=== PATIENT | female | born 1955 | race Caucasian/White ===

== ENCOUNTER 2016-07-21 19:11 | Inpatient (IN) | payer MEDICAID ==
[~2016-07-21] VITALS: Ht 177.8 cm; Wt 84.1 kg
--- NOTE | ~2016-07-21 | CON ---
PATIENT'S NAME: VERONIKA BURT [facility] AGE: 60 Y [address] ROOM: [id number] [place], [place] [address] LOCATION: GICU ADMIT DATE: 07/21/2016 Consultation DISCHARGE DATE: 07/25/2016 FAMILY PHYSICIAN: Ramon Dempsey ATTENDING PHYSICIAN: Lucien Loving REFERRING PHYSICIAN: Wellington Quezada MD Consultation to Dr. Coon. HISTORY OF PRESENT ILLNESS: Veronika Burt is a 60-year-old woman with presumed seizures due to presumed brain metastases due to documented small-cell carcinoma of the lung. The history of the present illness is obtained from Mrs. Burt who is a good historian; from reviewing the records on the [facility] chart; and the records obtained from the Cancer Center that attends her in [place], [place]. The patient was doing reasonably well when she came to [place]. She had arrived after a long motor vehicle trip from [place], [place]. In [place], she lived with her son, sister and nephew. The patient had retired two years ago. She came to [place] to visit family here, show her [place] family where she grew up, and planned a sojourn to the [facility]. The patient helped drive to [place]. She is certainly capable of self-care. She did cooking and vacuuming at home. She had no exercise or rehabilitation program. Physical therapy has been planned for her left arm. She is limited by left arm pain and weakness. She was limited by dyspnea if she tried to walk more than 3 to 4 blocks. The patient checked into a motel when the family arrived in [place]. The patient recalls she was unable to lift her leg. She then blacked out. Her son felt the patient had tonic-clonic motions. The patient was postictal and had cyanosis. The rescue squad was dispatched and the patient was taken to the emergency room at [facility] where she was confused and felt to be postictal. The patient's mental state cleared in the emergency room. The emergency room evaluation [place] [address], the hemoglobin 9.5, and platelets 541,000. The sedimentation rate was 28. The INR was 1.14 and the PTT was 27. The D-dimer was elevated at 1.81. The CMS was unremarkable except for a potassium of 3.4 mEq/L and an elevated creatinine of 1.5 mg/dL with a low GFR of 36 and a low magnesium of 1.7 mEq/L. There was no blood alcohol and drug levels were negative. The lactate was 1.6 and the serum ammonia was normal at 24. The ABG revealed a pH of 7.46, a PO2 of 71, a pCO2 of 42. Urinalysis revealed 5-10 wbc's/HPV and many bacteria. Blood cultures were drawn. PATIENT'S NAME: VERONIKA BURT [facility] AGE: 60 Y [address] ROOM: [address] [address] LOCATION: [facility] ADMIT DATE: 07/21/2016 Consultation DISCHARGE DATE: 07/25/2016 FAMILY PHYSICIAN: Ramon Dempsey ATTENDING PHYSICIAN: Lucien Loving A portable chest x-ray revealed elevation of left hemidiaphragm and surgical clips at the left hilum. There was pleural-parenchymal opacity at the left chest base. A ventilation perfusion scan of the lung revealed homogeneous perfusion of both lungs and normal ventilation of both lungs. There was a low probability of a pulmonary emboli. A CAT scan of the brain revealed mild atrophy and fake areas of mildly increased density in the right head of the caudate, nucleus, and the left anterior corpus callosum, in front of the frontal horn, in the right posterior corpus callosum, and adjacent to the left occipital horn. Significance of these abnormalities was not clear. MRI with contrast was strongly advised for further assessment. No hemorrhages or extra- axial fluid or blood collections were noted. An MRI was recommended and obtained. On 07/22/2016, the MRI revealed mild cerebral atrophy with innumerable nodular and ring-enhancing lesions above and below the tentorium consistent with widely disseminated metastatic disease. There was no intracranial hemorrhage or extra-axial fluid or blood. Mrs. Burt is seen in evaluation. Mrs. Burt has a history of small cell carcinoma of the lung. In September of 2015, the patient palpated a mass in her left neck and subsequently developed radicular discomfort in her left arm. A CAT scan of the thorax revealed left cervical, supraclavicular, mediastinal, and hilar adenopathy. A biopsy of a node in the left neck revealed small cell carcinoma. On 12/07/2015, the first cycle of TERRAZZO GRINDER-16 and carboplatin was initiated and six cycles were given, the last on 03/28/2016. Mrs. Burt tolerated this reasonably well. On 03/31, on day four of her six cycle, the patient did develop melena due to a supratherapeutic INR. From 05/15 through 05/26/16, the patient received 30 Gy in ten 3 Gy fractions to the mediastinum, left cervical, and left supraclavicular nodes. The patient was very fatigued. The pros and cons of prophylactic radiation therapy were considered, according to the patient, but her radiation oncologist in [place] recommended against PCI. ACTIVE MEDICAL PROBLEMS, CHRONIC AND DIAGNOSED: 1. ASHD leading to an RI requiring placement of a drug-eluting stent in July 2015. 2. COLD and reactive airways disease. The patient uses 2 L of oxygen at night all the time. 3. Essential arterial hypertension noted in 2001 on a checkup. This has not been labile or associated with any end-organ damage. 4. Hyperlipidemia, noted 2013. 5. Paroxysmal atrial fibrillation, first noted in 2001. 6. Systolic congestive heart failure, listed as a diagnosis. PATIENT'S NAME: VERONIKA BURT [facility] AGE: 60 Y [address] ROOM: [place] [address] LOCATION: [facility] ADMIT DATE: 07/21/2016 Consultation DISCHARGE DATE: 07/25/2016 FAMILY PHYSICIAN: Ramon Dempsey ATTENDING PHYSICIAN: Lucien Loving 7. Gastroesophageal reflux disease. 8. Tobacco use. The patient smoked two pack per day for 35 years, but has abstained since August 2014. 9. Right bundle branch block. 10. Hypothyroidism. The patient's TSH is elevated at 7.15 mIU/mL. 11. ?CKD. 12. Noy-hxciogc-ralivpdsv diabetes mellitus, listed as a diagnosis. She denies this. 13. Anxiety, treated with alprazolam. 14. Mild concentric LVH and a small pericardial effusion noted on echo. 15. Mild cerebral atrophy noted on MRI. ACUTE MEDICAL ILLNESSES (RESOLVED), PAST SURGERIES, INJURIES: 1. 1967, left elbow fracture. 2. 1971, left wrist fracture. 3. 1974, fracture of the ankles. 4. 1993, G1, P1, AB 0. 5. 2007, FRANCISCO and BSO primarily for dysmenorrhea from the fibroid tumor. 6. 2017, hospitalization with melena due to a supratherapeutic INR. MEDICATIONS UPON ADMISSION: 1. KCl. 2. Lisinopril. 3. Aspirin. 4. Clindamycin. 5. Hydrocodone. 6. Pantoprazole. 7. MS Contin. 8. Alprazolam. 9. Ondansetron. 10. Furosemide. 11. Metoprolol. 12. Atorvastatin. 13. Clopidogrel. ADVERSE REACTIONS TO MEDICATIONS, TRANSFUSIONS, ALLERGIES: 1. Lorazepam causes her to be "vicious.". 2. The patient had packed red blood cells due to chemotherapy-related anemia. TOBACCO: Two packs per day for 35 years, abstained since 2014. ALCOHOL: Sparkling wine on New Years. PATIENT'S NAME: VERONIKA BURT [facility] AGE: 60 Y [address] ROOM: [place] [address] LOCATION: [facility] ADMIT DATE: 07/21/2016 Consultation DISCHARGE DATE: 07/25/2016 FAMILY PHYSICIAN: Ramon Dempsey ATTENDING PHYSICIAN: Lucien Loving CAFFEINE: None. IMMUNIZATIONS: Negative flu. Positive Pneumovax. Negative tetanus. Negative varicella zoster virus. FAMILY HISTORY: The patient was adopted. SOCIAL HISTORY: The patient was born in [place], [place] but was raised and graduated a [place] [employer]. She worked years. She never . She moved to [place] 23 years ago. 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 She has not been a jewish goer. REVIEW OF SYSTEMS: 1. Long-standing tinnitus. 2. Constipation. 3. Nocturia. 4. Numbness in the right first and second finger. PHYSICAL EXAMINATION: VITAL SIGNS: Upon admission, pulse 96, blood pressure 110/60, respiratory rate 18, temperature 98.3, height 60 inches, weight 82.4 kg (182 pounds). GENERAL: Well-developed, slightly overweight, 60-year-old female, in no acute distress. HEENT: Unremarkable. Lymph nodes not palpable. NECK: Without JVD or carotid bruit. SKIN: Unremarkable. CHEST: Clear. CARDIOVASCULAR: Irregularly irregular rhythm with no murmurs, bruits, or adventitious sounds. CHEST WALL: Implanted vascular access device in the right subclavicular region. ABDOMEN: Healed vertical scar from the umbilicus to the symphysis pubis. No masses, tenderness or megaly. GENITALIA AND RECTAL: Not examined. EXTREMITIES: Compression devices present on the lower extremities for DVT prophylaxis. NEURO: Left arm strength 4/5, 5/5 throughout, otherwise. IMPRESSION: 1. Disseminated small-cell carcinoma of the lung, metastatic to the brain. 2. The patient probably developed convulsions due to the unrecognized brain PATIENT'S NAME: VERONIKA BURT [facility] AGE: 60 Y [address] ROOM: [place] [address] LOCATION: [facility] ADMIT DATE: 07/21/2016 Consultation DISCHARGE DATE: 07/25/2016 FAMILY PHYSICIAN: Physician, New ATTENDING PHYSICIAN: Lucien Loving. 3. The patient desires to return to [place], [place] to proceed with the cranial radiation that is needed closer to home. We should support her with this. RECOMMEND DIAGNOSTIC: No further tests, treatment. Cranial radiation per our colleagues in [place], [place]. PATIENT EDUCATION: 1. Told her we thought with dexamethasone and anticonvulsants she is unlikely to develop recurrent seizures if she hurries back to [place]. 2. Recommended she keep her appointments, which she intends to do, in a day or two in [place] for cranial radiation. MD CELESTE JOYA/modl /[id number] CC: MD Royce Jewell MD Fishel Z Liberman, MD, PhD d: 07/29/16 2339 t: 08/01/16 1446, CONSULTATION REPORT
--- NOTE | ~2016-07-21 | HP ---
PATIENT'S NAME: MIKEY BURT [facility] AGE: 60 Y [address] ROOM: [address] [address] LOCATION: [facility] ADMIT DATE: 07/21/2016 History & Physical DISCHARGE DATE: FAMILY PHYSICIAN: PHYSICIAN, UNKNOWN ATTENDING PHYSICIAN: MARLY STAHL DATE OF SERVICE: CHIEF COMPLAINT: Seizure. HISTORY OF PRESENT ILLNESS: This is a 60-year-old female who usually lives in [place] and is visiting [place]. The patient has a history remarkable for left lower lung cancer, diagnosed in October 2015, already received chemotherapy and radiation, and she already finished those treatments and was told was in remission without evidence of metastases. The story is that the patient came here from [place] with her son and her sister and when they arrived at the hotel, the patient's son and sister went down to the office. The patient was alone in the room and all of the sudden, the patient felt cramp in her left lower extremity, and then she was complaining of shortness of breath and then she fell backwards lying on the bed and was having tremor where she described as shaking of of all extremities. The son walked into the room while she was having a seizure and the son called 911 and the ambulance crew arrived. When they arrived on the scene, the patient initially was confused where she was saying the word ''dora'' to every question asked by the EMS. She then would regain her normal mental status, the duration of the seizure was unknown. The patient has never been diagnosed with seizure before. The patient was then brought here for evaluation. Please refer to the emergency room course for more details of the events happened in the emergency room. REVIEW OF SYSTEMS: As mentioned in history of present illness. All other systems were reviewed and they were negative except those mentioned in the history of present illness. PAST MEDICAL HISTORY: 1. History of left lower lung cancer, diagnosed in October 2015, status post chemotherapy and radiation, she already finished both treatment and she was never told she had metastasis. 2. Myocardial infarction, status post one drug-eluting stent placed in early July 2015 in [place]. 3. COPD on 2 L nasal cannula at all times, but the patient is noncompliant [facility] AGE: 60 Y [address] [place] [facility] [place] [address] LOCATION: [facility] ADMIT DATE: 07/21/2016 History & Physical DISCHARGE DATE: FAMILY PHYSICIAN: PHYSICIAN, UNKNOWN ATTENDING PHYSICIAN: MARLY STAHL and has not been using home oxygen. 4. Hypertension. 5. History of CHF, not sure which type, because we do not have any echo report. 6. Hyperlipidemia. 7. Gastroesophageal reflux disease. 8. Paroxysmal atrial fibrillation, she was on Coumadin before, but she developed massive bright red blood per rectum requiring 3 units of packed red blood cell transfusion in April 2016 in [place]. She underwent EGD and colonoscopy at that time without clear source of bleeding. She has been off Coumadin since then. ALLERGIES: NONE; ALTHOUGH, THE PATIENT STATES THAT WHEN SHE TAKES ATIVAN, SHE BECOMES AGGRESSIVE, AND I SPOKE TO THE PATIENT THAT IN CASE SHE IS IN ACTIVE SEIZURE, ATIVAN IS VERY IMPORTANT TO STOP THE SEIZURE, AND THE PATIENT AGREED ATIVAN USE FOR ACTIVE SEIZURE. HOME MEDICATIONS: 1. Potassium chloride 10 mEq p.o. daily. 2. Lisinopril 2.5 mg p.o. daily. 3. Aspirin 81 mg p.o. daily. 4. Clindamycin 150 mg p.o. take 4 times a day. 5. Hydrocodone 10/325 mg p.o. every 6 hours p.r.n. for pain. 6. Protonix 40 mg p.o. daily. 7. MS Contin 30 mg p.o. b.i.d. 8. Xanax 0.25 mg p.o. b.i.d. p.r.n. for anxiety. 9. Zofran 4 mg p.o. p.r.n. q.6 h. for nausea. 10. Lasix 20 mg p.o. daily p.r.n. for leg edema. 11. Metoprolol 25 mg p.o. take half-tablet twice a day. 12. Lipitor 40 mg p.o. daily. 13. Plavix 75 mg p.o. daily. SOCIAL HISTORY: The patient was a former cigarette smoker about 2 packs per day for 35 years and she quit in 2014. Denies any alcohol or any illegal drug use. FAMILY HISTORY: The patient does not remember anything about her parents' past medical history. PAST SURGICAL HISTORY: 1. Status post hysterectomy. 2. Status post LA with 1 drug-eluting stent placed in July 2015 in [place]. PATIENT'S NAME: MIKEY BURT [facility] AGE: 60 Y [address] ROOM: [id number] [place], [place] [address] LOCATION: [facility] ADMIT DATE: 07/21/2016 History & Physical DISCHARGE DATE: FAMILY PHYSICIAN: PHYSICIAN, UNKNOWN ATTENDING PHYSICIAN: MARLY STAHL PHYSICAL EXAMINATION: VITAL SIGNS: Temperature 98, heart rate 105, blood pressure 110/80, respirations 15, and saturation 98% on 4 L nasal cannula. GENERAL APPEARANCE: The patient is alert and oriented x3, in no acute distress. HEENT: Pupils are equally round and reactive to light. Extraocular muscles intact. Anicteric sclerae. Nasal turbinates are normal bilaterally. Moist oral mucosa. NECK: No JVD. CARDIOVASCULAR: Irregularly irregular rate and rhythm. No obvious murmur, rubs, or gallops. RESPIRATORY: Diffuse wheezing with decreased breath sounds in the left lower lung. No crackles, no rhonchi, no rales. ABDOMEN: Soft, nontender, nondistended, no palpable mass, bowel sounds are present. EXTREMITIES: No edema in upper or lower extremities. SKIN: No ulcer, no rash, no cyanosis. MUSCULOSKELETAL: No joint pain. No muscle pain. Range of motion intact. NEUROLOGICAL: Grossly nonfocal at the moment. LABORATORY DATA: ABG pH 7.46, pCO2 42, pO2 71, bicarbonate 29.9, and saturation 95%, this is on 4 L nasal cannula. Lactic acid 1.6, ammonia 24. Troponin less than 0.04. Pro-BNP 959, CPK 48. White blood cells 11.2, hemoglobin 9.5, hematocrit 31.9, MCV 88.9, platelets 541, glucose 128, BUN 19, creatinine 1.5. Sodium 139, potassium 3.4, chloride 101, CO2 28, calcium 8.9, total protein 6.9, albumin 3.3, AST 25, ALT 10, alkaline phosphatase 48, total bilirubin 0.8, magnesium 1.7, anion gap 13.4, GFR 36, ESR 28. INR 1.14, PTT 27. Urinalysis 500 of leukocytes, negative nitrite, many bacteria, white blood cells 5-10. Urine drug screen positive for opiates. Alcohol level, Tylenol level, and aspirin level all below the toxic level. CK-MB less than 0.5. CRP 1.05. TSH 7.15. Prolactin 25.6. Procalcitonin 0.05. D-dimer 1.81. IMAGING STUDIES: 1. Chest x-ray performed in the emergency room. The official report is pending. Based on my review, enlarged heart and opacity in the left lower lung. I have requested the x-ray to be read by the on-call radiologist. Currently, it is pending. 2. CT scan of the brain without contrast, the preliminary report performed in the emergency room, showed multiple indeterminate central hyperdense lesions. Recommend brain MRI with and without gadolinium. No midline shift, no hydrocephalus, and no hemorrhage. No skull fracture. Vague area of hyperdensity in the right caudate head is approximately 1.2 cm with central area of hypodensity. Similar prominence of the right caudate head measures 10 mm on image 21. Left corpus callosum splenium 6 PATIENT'S NAME: MIKEY BURT [facility] AGE: 60 Y [address] ROOM: [address] [address] LOCATION: [facility] ADMIT DATE: 07/21/2016 History & Physical DISCHARGE DATE: FAMILY PHYSICIAN: PHYSICIAN, UNKNOWN ATTENDING PHYSICIAN: MARLY STAHL mm vague hyperdensity on image 24. Left posterior corpus callosum 7 mm hyperdensity image 27. 3. EKG on admission showed finding of atrial fibrillation with heart rate of 141, QRS 139 milliseconds, QTc 409 milliseconds. Also, has evidence of right bundle-branch block. No prior EKG for comparison. EMERGENCY ROOM COURSE: In the emergency room, the patient has been doing well without any more seizures. She has remained alert and oriented x3 in no acute distress. The patient currently does not complain of any symptoms. ER physician already contacted on-call neurosurgeon, Dr. Coon, who will be seeing the patient in the morning. In the emergency room, the patient received 2 L of normal saline bolus given that her blood pressure was in the high 80's to low 90s and heart rate in the 120s to 140's. ASSESSMENT AND PLAN: 1. Regarding her new-onset seizures in the setting of possible brain mass: Please follow up with the official report of the CT of the brain without contrast in the morning once the report is official. For now, I will cover with 1 g intravenous Keppra and then 500 mg b.i.d. afterwards. Intravenous Ativan 2 mg every 5 minutes p.r.n. for active seizure. Seizure precaution. Preliminary report did not show any midline shift, hydrocephalus, or hemorrhage. I have spoken to the on-call neurosurgeon Dr. Coon and confirmed iv decadron is not necessary at the moment. Further plan depends on clinical course. I will also consult Neurology in the morning to help assist in managing seizure. 2. [id number]-wb-igvpxud hypoxemic respiratory failure secondary to copd exacerbation: I will cover her with intravenous Solu-Medrol 125 mg now and then 60 mg b.i.d. and also give her nebulization every 6 hours with Xopenex plus Atrovent and also Atrovent every 2 hours p.r.n. I will also cover with intravenous Levaquin given that she does have pyuria and also part of the chronic obstructive pulmonary disease exacerbation also includes antibiotic administration. Further plan depends on clinical course. Please follow up with the official report of the chest x-ray in the morning. 3. Regarding her acute kidney injury on chronic kidney disease: Hard to tell this is new or at baseline because we do not have any labs to compare. The patient told me that she was never told she had any kidney problem and probably this is acute kidney injury. I will hydrate her with intravenous fluids. She already got 2 L in the emergency room. I will give her more intravenous fluids for hydration and watch her oxygen saturation closely. The patient does not look volume overloaded. 4. Regarding her atrial fibrillation with rapid ventricular response: I PATIENT'S NAME: MIKEY BURT [facility] AGE: 60 Y [address] ROOM: [place] [address] LOCATION: [facility] ADMIT DATE: 07/21/2016 History & Physical DISCHARGE DATE: FAMILY PHYSICIAN: PHYSICIAN, UNKNOWN ATTENDING PHYSICIAN: MARLY STAHL will hydrate her with intravenous fluids to keep the blood pressure high and I am going to start her on Cardizem bolus and drip as long as blood pressure tolerates. Further plan depends on clinical course. 5. Regarding her hypothyroidism: I will start her on the p.o. levothyroxine 50 mcg in the morning daily. 6. Regarding her D-dimer elevation: Could be from pulmonary embolism given that the patient has history of lung cancer or from the renal failure. Either way, currently, the patient denies any shortness of breath. Her ANDREAS prevents me from getting a CT pulmonary angiogram and I already called the on-call microwave radio technician to perform a ventilation and perfusion scan tonight, but I was told that we dd not have the appropriate materials tonight, but in the morning, they will be able to perform the ventilation and perfusion scan. The patient does not want any blood thinner due to her history of a massive bright red blood per rectum requiring 3 units of packed red blood cell transfusion earlier this year while she was on Coumadin. I will watch her oxygen saturation closely. The patient denies any chest pain or any shortness of breath at the moment. I will keep her on oxygen nasal cannula, titrate to keep her saturation more than 90%. At home, she uses 2 L, but she has been noncompliant. I will also get a venous duplex ultrasound of the bilateral lower extremities to screen for deep vein thrombosis. If ANDREAS resolves in AM, can get CTPA PE protocol. 7. Regarding her pyuria: The patient denies any urinary frequency, urgency, or dysuria, but in the setting of pyuria and new-onset seizure, I am going to cover her with intravenous Levaquin, which is also part of the chronic obstructive pulmonary disease exacerbation. I will get a urine culture and also 2 sets of blood culture. 8. Regarding her deep vein thrombosis prophylaxis: The patient will get subcutaneous Lovenox renally dosed by pharmacy. 9. Regarding her code status: She is a full code. Time spent in care on the day of admission 70 minutes where 40 minutes was spent on counseling, which included going over the plan of care in detail with the patient, and with her sister over the phone, and addressing every question and concerns that they had to their satisfaction. The remaining of the time was spent on chart review, interview, and also physical examination. Further plan will depend on clinical course. Her sister name is Aleyda #[phone]. Further plan will depend on clinical course. PATIENT'S NAME: MIKEY BURT [facility] AGE: 60 Y [address] ROOM: [place] [address] LOCATION: [facility] ADMIT DATE: 07/21/2016 History & Physical DISCHARGE DATE: FAMILY PHYSICIAN: PHYSICIAN, CORNELIUS ATTENDING PHYSICIAN: MARLY STAHL MD MANDY RODRIGUEZ/maria l /[id number] D: [id number] T: [id number] HISTORY & PHYSICAL
--- NOTE | ~2016-07-21 | HP ---
PATIENT'S NAME: MIKEY BURT [facility] AGE: 60 Y [address] ROOM: [id number] [place], [place] [address] LOCATION: [facility] ADMIT DATE: 07/21/2016 History & Physical DISCHARGE DATE: FAMILY PHYSICIAN: PHYSICIAN, UNKNOWN ATTENDING PHYSICIAN: MARLY STAHL DATE OF SERVICE: ADDENDUM: The patient after getting 4 L of IV normal saline the patient was still in atrial fibrillation with RVR, heart rate in the 120, sometimes go up to the 130. Blood pressure has been in the mid to high 90s to low 100s. MAP between 62-70. The patient is asymptomatic. She denies any chest pain, any confusion, or any shortness of breath. She is also getting right now IV albumin 25% 25 g and also she is started on Dariel-Synephrine drip to try to raise the blood pressure. She has ANDREAS so digoxin was not used. Due to low blood pressure, can't use rate control agent. Currently, her blood pressure on neosyneprine drip has improved to 120s; MAP in the 80s; and her heart rate is in the 110's, sometimes 90's. The patient is sleeping and she is comfortable. The patient cannot take any blood thinners because she had a massive lower GI bleeding in April 2016 where she required 3 units of packed red blood cell transfusion at that time in [place] where she also had an EGD and also colonoscopy which were unremarkable and could not find the source of bleeding. I have already spoken to the on-call women's apparel salesperson, Dr. Darling, about this case. The patient will be evaluated in the morning by Cardiology for possible cardioversion if necessary. I have explained to the patient that the patient is at risk of having stroke given that she is not on anticoagulation and can't be on it due to recent massive GI bleeding. The patient already was in atrial fibrillation with RVR upon arrival in the emergency room, so it is not really clear how long she has been in atrial fibrillation with RVR. The patient understands that she is at risk of stroke. The patient also understands that if cardioversion is necessary the patient is also at risk of having a stroke. Currently, the patient's condition is stable. Blood pressure is in the 120's, heart rate is in the 90-110 right now. The patient is sleeping. I will keep the patient n.p.o. and Cardiology can evaluate the patient in the morning for further management. I have already spoken to her sister over the phone and told her in detail about the plan of care, risk of stroke, and also addressed all of her questions to her satisfaction. Another addendum is that I will cancel V/Q scan in AM for now and depending on her renal function, if improved in AM, can get ct chest with contrast for PE protocol due to high d dimer. Amiodarone was going to be used but patient was hypotensive and now is comfortable and HR has come down to 90's and BP in 100-120's. MARLY STAHL MD CC/modl PATIENT'S NAME: MIKEY BURT [facility] AGE: 60 Y [address] ROOM: [place] [address] LOCATION: [facility] ADMIT DATE: 07/21/2016 History & Physical DISCHARGE DATE: FAMILY PHYSICIAN: PHYSICIAN, UNKNOWN ATTENDING PHYSICIAN: MARLY STAHL /[id number] D: T: HISTORY & PHYSICAL
--- NOTE | ~2016-07-21 | ENPV ---
Vascular Lower Extremities DVT Study Procedure Demographics Patient Name MIKEY BURT Date of Study 07/22/2016 Patient Number [id number] Gender Female Date of 1955 Age 60 Visit Number [id number] Height Accession Number [id number] Weight Room Number G6214 BSA BMI Referring Fabienne Lnio MD Interpreting [place]my [place] Physician Physician Physician Ordering Physician Fabienne Lino MD Recenterer Drop Wire Aliner Alia Wellington [facility], RVT Conclusions Summary Normal venous duplex examination of the legs bilaterally with normal venous Doppler signals noted throughout. No evidence of thrombophlebitis is noted bilaterally in the deep and superficial veins of the legs. Small calf thrombi cannot be excluded. Procedure Type of Study: Veins:Lower Extremities DVT Study, Venous Duplex Lower Extremity Bilateral. Indications for Study:DVT. Appropriate Use Criteria:3 Patient Status:Routine. Study Location:Inpatient Portable. Technical Quality:Adequate visualization. Velocities are measured in cm/s ; Diameters are measured in cm Right Lower Extremities DVT Study Measurements Right 2D and Doppler Measurements + + + + +------+------+ + !Location !Visualized!Compressibility!Thrombosis!Signal!Reflux!Reflux ! ! ! ! ! ! ! !(sec) ! + + + + +------+------+ + !GSV Thigh !Yes !Yes !None !Phasic!No ! ! + + + + +------+------+ + !Common !Yes !Yes !None !Phasic!No ! ! !Femoral ! ! ! ! ! ! ! + + + + +------+------+ + !Prox !Yes !Yes !None !Phasic!No ! ! !Femoral ! ! ! ! ! ! ! + + + + +------+------+ + !Mid Femoral!Yes !Yes !None !Phasic!No ! ! + + + + +------+------+ + !Dist !Yes !Yes !None !Phasic!No ! ! !Femoral ! ! ! ! ! ! ! + + + + +------+------+ + !Popliteal !Yes !Yes !None !Phasic!No ! ! + + + + +------+------+ + !Gastroc !Yes !Yes !None !Phasic!No ! ! + + + + +------+------+ + !PTV !Yes !Yes !None !Phasic!No ! ! + + + + +------+------+ + !Peroneal !Yes !Yes !None !Phasic!No ! ! + + + + +------+------+ + Left Lower Extremities DVT Study Measurements Left 2D and Doppler Measurements + + + + +------+------+ + !Location !Visualized!Compressibility!Thrombosis!Signal!Reflux!Reflux ! ! ! ! ! ! ! !(sec) ! + + + + +------+------+ + !GSV Thigh !Yes !Yes !None !Phasic!No ! ! + + + + +------+------+ + !Common !Yes !Yes !None !Phasic!No ! ! !Femoral ! ! ! ! ! ! ! + + + + +------+------+ + !Prox !Yes !Yes !None !Phasic!No ! ! !Femoral ! ! ! ! ! ! ! + + + + +------+------+ + !Mid Femoral!Yes !Yes !None !Phasic!No ! ! + + + + +------+------+ + !Dist !Yes !Yes !None !Phasic!No ! ! !Femoral ! ! ! ! ! ! ! + + + + +------+------+ + !Popliteal !Yes !Yes !None !Phasic!No ! ! + + + + +------+------+ + !Gastroc !Yes !Yes !None !Phasic!No ! ! + + + + +------+------+ + !PTV !Yes !Yes !None !Phasic!No ! ! + + + + +------+------+ + !Peroneal !Yes !Yes !None !Phasic!No ! ! + + + + +------+------+ + Impressions Right Impression no dvt seen Left Impression no dvt seen Signature dtt: Srinivasa Munoz dtd: 07/22/16 1229 Physician Christopher De Leon
--- NOTE | ~2016-07-21 | CON ---
PATIENT'S NAME: VERONIKA BURT [facility] AGE: 60 Y [address] ROOM: [id number], [place] [address] LOCATION: GICU ADMIT DATE: 07/21/2016 Consultation DISCHARGE DATE: FAMILY PHYSICIAN: PHYSICIAN, UNKNOWN ATTENDING PHYSICIAN: MARLY STAHL DATE OF CONSULTATION: 07/22/2016 REFERRING PHYSICIAN: Wellington Quezada MD The patient was seen on Neurology consultation on 07/22/2016 at 2 p.m. HISTORY OF PRESENT ILLNESS: Ms Burt was admitted overnight. She is a 60-year-old female, who unfortunately had a generalized seizure upon her short stay here in [place] at a local hotel, who is on her way up to [place] with her family members. She has a diagnosis of a lung cancer, for which she had a biopsy, resection of her left portion of her lung back in October 2015, completed chemotherapy and radiation therapy. The patient has tolerated the therapy well, though she had an episode of atrial fibrillation at the time of her presentation with her lung cancer. Apparently, she was placed on Coumadin at that time, but she suffered a GI bleed, for which she had to stop anticoagulation. She had since been on a combination of aspirin and Plavix at home and has not had any recurrence of bleed. The patient is now stable after she came in with a generalized seizure that was witnessed by her son at the hospital. The patient was apparently alone in her bedroom and all she could remember was her left lower leg began to cramp incessantly, somewhat in a spastic clonus manner, but did not have any jerking of the limb. Thereafter, she apparently had a generalized seizure and passed out. EMS was called to her hotel room and upon arrival of EMS, she was noted to be postictal and confused. She did not have any recurrent seizure thereafter, but was started on Keppra 500 mg IV twice a day in the ER by the hospitalist, Dr. Stahl. She had an elevated white count, probably a leukemoid reaction to this one time seizure, she has remained seizure free. Her other laboratories were all within normal limits. Toxicology essentially was negative, but was positive for opiates. Platelet count was elevated at 775, possibly is an acute phase reactant and this will be followed here in the hospital. Because of the slight elevation in D-dimer along with a presentation of rapid atrial fibrillation, the patient did have a pulmonary nuclear study (V/Q scan) to rule out any evidence of a possible pulmonary embolism, however, the study appeared to be within normal limits. A CAT scan of the brain was performed followed by an MRI due to the abnormality on the CAT scan showing some small foci of scattered lesions consistent likely with metastasis. The MRI picked up multiple areas of metastatic foci, mostly fairly small without any surrounding edema, but some of these foci were ring enhancement. The etiology certainly for the multiple and too numerous to count lesions of the brain could include a metastatic disease from the patient's PATIENT'S NAME: VERONIKA BURT [facility] AGE: 60 Y [address] ROOM: [id number] [place] [id number] LOCATION: [facility] ADMIT DATE: 07/21/2016 Consultation DISCHARGE DATE: FAMILY PHYSICIAN: PHYSICIAN, UNKNOWN ATTENDING PHYSICIAN: MARLY STAHL known cancer or infection, however, the patient denies any recent fevers. She denies feeling ill. From my seeing the patient, she did appear to be nontoxic. She was placed on antibiotics, thought that she may have a superimposed pneumonia. The patient denies any cough or sputum production. Her mental status is excellent upon my seeing her. She has no side effects from the start of the antiseizure medication. PRIOR MEDICAL HISTORY: She has a lung cancer, diagnosed back in [place], [place], where she resides, this took place in October 2015. She had some chemotherapy and radiation. There was some area of biopsy, but not a partial resection according to the patient of the left lobe. She also had a history of a myocardial infarction with a drug-eluting stent placed back in July 2015. She does have a history of heavy smoking and does have a COPD history. Also history of hypertension, hyperlipidemia, gastroesophageal reflux disease as well as atrial fibrillation with rapid ventricular response seen here in this hospital. This was diagnosed in 2015 at the time of her having the lung cancer workup. ALLERGIES: ATIVAN, FOR WHICH SHE SAYS THAT SHE BECOMES RAMBUNCTIOUS, THOUGH IT IS UNCLEAR IF THIS IS A TRUE ALLERGY. CURRENT HOME MEDICATIONS: 1. Xanax 0.25 mg p.o. twice a day p.r.n. for anxiety. 2. Metoprolol 25 mg half a tablet twice a day. 3. Lipitor 40 mg daily. 4. Plavix 75 mg p.o. daily along with aspirin 81 mg p.o. daily. 5. Lisinopril 2.5 mg p.o. daily. 6. MS Contin 30 mg p.o. twice a day. SOCIAL HISTORY: The patient denies current smoking, however, she was a heavy, 2 pack-a-day smoker for nearly 40 years, she quit sometime in late 2014. FAMILY HISTORY: Not consistent with any cancers. REVIEW OF SYSTEMS: NEUROLOGIC: The patient presents with generalized seizures at the first time in her life. This is a one time generalized seizure and found to have multiple likely metastatic lesions in her brain, which are possibly consistent with metastatic disease of her known primary cancer of the lung. She came in with an elevated white count, possibly has a leukemoid reaction to the seizure, though there was no known fever and the patient denies any fever, chills, nauseousness, or vomiting. PATIENT'S NAME: VERONIKA BURT [facility] AGE: 60 Y [address] ROOM: [address] [address] LOCATION: [facility] ADMIT DATE: 07/21/2016 Consultation DISCHARGE DATE: FAMILY PHYSICIAN: PHYSICIAN, UNKNOWN ATTENDING PHYSICIAN: MARLY STAHL HEMATOLOGIC: The patient has a history of bleeding on Coumadin. The patient was on aspirin and Plavix combination instead for atrial fibrillation. No known history of stroke. RESPIRATORY: The patient has a known history of COPD, also diagnosed with lung cancer, post chemotherapy and radiation. Rest of a 10-point review of systems is within normal limits. PHYSICAL EXAMINATION: GENERAL: The patient is a thin lady, alert and oriented, somewhat soft-spoken, and does not elaborate significantly. She is a bit withdrawn, but nonetheless she is friendly. NEUROLOGIC: She has no slurring of her speech. Her mentation is excellent. Cranial nerves II through XII are intact. Motor exam revealed generalized 5/5 power with normal tone of the limbs. There is some decreased bulk of the extremities in general due to the patient being thin. Testing of coordination on rapid alternating hand movements as well as youggw-xe-jyce testing was all normal. Sensory exam is grossly normal. Her reflexes were symmetric at +1 at the biceps, triceps, brachioradialis, patellar, and ankle jerks. Plantar reflex is downgoing. IMPRESSION: Veronika Burt is a 60-year-old female patient, who was a heavy smoker in the past and developed lung cancer. Unfortunately, even after known treatment for her primary lung cancer, we may be dealing with here a metastatic disease from her lungs. The pattern of multifocal areas of small lesions appearing to be ring-enhancing may be metastases and from my experience, lung cancer results in metastases that are somewhat less numerous and often would affect the posterior fossa before the higher areas of the brain parenchyma. Thus, some type of process such as embolization from marantic endocarditis could be considered in this setting by hypothrombotic state in this patient, who has lung cancer. The leading issue here is probably hematogenous spread of primary tumor. Nonetheless, an infection abscesses could certainly be possible. The patient has no known history of foreign travel. Denies eating uncooked foods. There is a plan currently for the patient to undergo here in this hospital a biopsy of any one of these lesions, tissue diagnosis. This will likely take place on the 24 of July the patient is tolerating the antiseizure medication presently and we will keep the Keppra 500 mg twice a day. I do not think that there is a need for further workup concerning the seizure such as an EEG since the patient is now stable. We will continue to follow along with the Hospitalist Service concerning the patient's status here in the hospital. PATIENT'S NAME: VERONIKA BURT [facility] AGE: 60 Y [address] ROOM: [place] [address] LOCATION: [facility] ADMIT DATE: 07/21/2016 Consultation DISCHARGE DATE: FAMILY PHYSICIAN: PHYSICIAN, UNKNOWN ATTENDING PHYSICIAN: MARLY STAHL MD TERESITA SAMUEL/maria l /[id number] d: 07/23/16 0140 t: 08/16/16 0807, CONSULTATION REPORT
--- NOTE | ~2016-07-21 | ECHO ---
Transthoracic Echocardiography Report (TTE) Demographics Patient Name MIKEY BURT Date of Study 07/24/2016 Patient Number [id number] Visit Number [id number] Date of 1955 Room Number [id number] Accession Number [id number] Gender Female Age 60 year(s) Referring Fabienne Lino MD Graphic Coordinator Damaris Barrera RVT, Physician MAGALI Physician Interpreting Alondra White Refrigerator Glazier Physician Supervising Ordering Physician Wade York MD/SAGARP Nurse Stress Flatwork Tier Conclusions Contractility Score Summary Normal Left Ventricular contractility was noted. Summary The estimated left ventricular ejection fraction is 65-70% with normal WM and internal dimension. Moderate concentric left ventricular hypertrophy. Dilated IVC with poor inspiratory collapse consistent with elevated RA pressure. Large global pericardial effusion no obvious echo evidence of tamponade. Procedure Type of Study TTE procedure:2D Echocardiogram. Procedure Date Date: 07/24/2016 Start: 09:21 AM Study Location: Inpatient Portable Technical Quality: Fair Indications:Congestive heart failure. Appropriate Use Criteria: 8 Patient Status: Routine Rhythm: Sinus tachycardia HR: 101 bpm BP: 94/59 mmHg M-Mode/2D Measurements LV Diastolic Dimension: 4.34 cm LV Systolic Dimension: 2.18 cm LV Septum Diastolic: 1.61 cm LV PW Diastolic: 1.38 cm AO Root Dimension: 2.7 cm Cardiac Output: 10.21 l/min AV Cusp Separation: 2.1 cm RV Diastolic Dimension: 2.86 cm LA volume: 60 ml LVOT: 2.1 cm RV Base: 3.58 cm LVOT VTI: 29.2 cm RV Mid: 2.84 cm LV Stroke volume: 101.09 ml TAPSE: 1.75 cm TDI-S': 12.2 cm/s Doppler Measurements AV Peak Velocity: 1.45 m/s MV Peak E-Wave: 0.94 m/s AV Peak Gradient: 8.41 mmHg AV Mean Gradient: 7 mmHg MV P1/2t: 33 msec LVOT Peak Velocity: 1.45 m/s TR Velocity:2.08 m/s PV Peak Velocity: 1.49 m/s TR Gradient:17.31 mmHg PV Peak Gradient: 8.88 mmHg Estimated RAP:15 mmHg Estimated PASP: 32.31 mmHg Estimated RVSP: 32 mmHg E' Septal Velocity: 0.08 m/s E' Lateral Velocity: 0.12 m/s Findings Left Ventricle Moderate concentric left ventricular hypertrophy with normal EF,WM and internal dimension. Diastolic function indeterminate due to patient's arrhythmia. Right Ventricle Normal right ventricle structure and function. Left Atrium The left atrium is normal. There is no evidence of patent foramen ovale or atrial septal defect by color Doppler. Right Atrium Normal right atrial size. Dilated IVC with poor inspiratory collapse consistent with elevated RA pressure. Mitral Valve Normal mitral valve structure and function. Trivial mitral regurgitation by color Doppler. Aortic Valve Normal aortic valve structure and function. Tricuspid Valve Normal appearing tricuspid valve. Trivial tricuspid regurgitation by color Doppler. Pulmonic Valve Normal pulmonic valve structure and function. Pericardial Effusion Large global pericardial effusion. Cannot rule out cardiac tamponade. Miscellaneous Visualized portions of the aortic root and ascending aorta appear normal in size. Pleural Effusion No evidence of pleural effusion. Contractility Score LV regional wall motion:(0-Non visualized 1-Normal 2-Hypokinesis 3-Akinesis 4-Dyskinesis 5-Aneurysm) Signature dtt: Cindy Cantu dtd: 07/24/16 0921 Physician Self Edit
--- NOTE | ~2016-07-21 | CON ---
PATIENT'S NAME: MIKEY BURT [facility] AGE: 60 Y [address] ROOM: [place] [address] LOCATION: GICU ADMIT DATE: 07/21/2016 Consultation DISCHARGE DATE: FAMILY PHYSICIAN: PHYSICIAN, UNKNOWN ATTENDING PHYSICIAN: LUCIEN STAHL REFERRING PHYSICIAN: Wellington Quezada MD REFERRING PHYSICIAN: Lucien Stahl MD REASON FOR CONSULT: Atrial fibrillation with rapid ventricular response. HISTORY OF PRESENT ILLNESS: This is a 60-year-old female with a history of lung cancer who was admitted with possible seizure activity. She is here visiting family. She normally lives in [place]. She has left lower lung cancer that was diagnosed in October 2015 and recently finished chemotherapy and radiation. She was told that she was cancer-free at that time. She was staying in a hotel with a son and a sister, and they went down to the front office, and when they came back, they found her complaining of some shortness of breath, and then she fell backward, lying on the bed, having tremors, described as a shaking all over. The son called 911, and when they arrived, she was a little confused, but then would regain her normal mental status. This is the first seizure that she has ever had. The patient has a history of atrial fibrillation, chronic in nature. She had been on warfarin, but had fairly significant GI bleed and underwent an EGD as well as a colonoscopy, but both of those came back normal, and the obvious source of bleeding was not identified. Since that time, she has not been on any type of blood thinner. PAST MEDICAL HISTORY: 1. Qur-gqmqjby-jkmeooqsb diabetes mellitus. 2. Asthma. 3. Essential hypertension. She has had myocardial infarction in the past as well as a CVA. 4. Left lower lung carcinoma. 5. COPD, on 2 L of oxygen continuously, but is noncompliant when using at home. 6. Hyperlipidemia. 7. Gastroesophageal reflux disease. ALLERGIES: MORE INTOLERANCE TO ATIVAN. HOME MEDICATIONS: 1. Potassium chloride 10 mEq p.o. daily. PATIENT'S NAME: MIKEY BURT [facility] AGE: 60 Y [address] ROOM: [place] [address] LOCATION: GICU ADMIT DATE: 07/21/2016 Consultation DISCHARGE DATE: FAMILY PHYSICIAN: PHYSICIAN, UNKNOWN ATTENDING PHYSICIAN: LUCIEN STAHL 2. Lisinopril 2.5 mg daily. 3. Aspirin 81 mg daily. 4. Clindamycin 150 mg p.o. 4 times a day. 5. Hydrocodone 10/325 mg every 6 hours p.r.n. pain. 6. Protonix 40 mg daily. 7. MS Contin 30 mg b.i.d. 8. Xanax 0.25 mg b.i.d. p.r.n. for anxiety. 9. Zofran 4 mg p.r.n. every 6 hours for nausea. 10. Lasix 20 mg p.r.n. 11. Metoprolol 25 mg half tablet twice a day. 12. Lipitor 40 mg daily. 13. Plavix 75 mg daily. SOCIAL HISTORY: She is a former smoker, 2 packs of cigarettes a day for 35 years. She quit in 2014. FAMILY HISTORY: She is adopted. Biological family history, mainly thinks she knows that someone had multiple sclerosis. PAST SURGICAL HISTORY: 1. Hysterectomy. 2. Left heart catheterization with 1 drug-eluting stent placed July 2015, not sure what artery. 3. She also had a partial lobectomy on the left. REVIEW OF SYSTEMS: GENERAL: She has been a little more fatigued. PULMONARY: She complains of some shortness of breath. HEAD: She denies complaints of headaches. EYES: No blurred vision or double vision. EARS: No problems with hearing. NOSE: No epistaxis or rhinorrhea. GASTROINTESTINAL: She has had problems with GI bleed, with recent EGD and colonoscopy. EXTREMITIES: She has had some problems with her legs feeling a little bit heavy. GENITOURINARY: She does not notice any urinary symptoms such as painful voiding or hematuria. MUSCULOSKELETAL: No complaints of arthralgias or myalgias. NEUROLOGIC: She did have a seizure. No other focal problems noted. LABORATORY DATA: Cardiac enzymes have been negative. Her white count was 11.2 with a PATIENT'S NAME: MIKEY BURT [facility] AGE: 60 Y [address] ROOM: [place] [address] LOCATION: [facility] ADMIT DATE: 07/21/2016 Consultation DISCHARGE DATE: FAMILY PHYSICIAN: PHYSICIAN, UNKNOWN ATTENDING PHYSICIAN: LUCIEN STAHL hemoglobin of 9.5, hematocrit 31.9, and platelets are 541. BUN 19; creatinine 1.5; sodium 139; and potassium was 3.4, after replacement 4.7. ESR 28. INR 1.14. UA showed 500 leukocytes, 5 to 10 wbc's, epithelial 2 to 5, and many bacteria. She has had an MRI of the brain showing too numerous to count nodular ring-enhancing mass lesions throughout the cerebrum and cerebellum consistent with widely disseminated metastatic disease. ASSESSMENT AND PLAN: 1. Atrial fibrillation with rapid ventricular response. Currently, she is on a very low dose of Dariel-Synephrine. Her blood pressures are staying fairly stable at this time. Would continue Cardizem and Dariel-Synephrine and rate control for her atrial fibrillation rather than doing a direct current cardioversion as she is a high risk for cerebrovascular accident since she has not been on long-term anticoagulation. 2. Hypothyroidism. She was initiated on Synthroid replacement therapy. We will continue current medications. 3. Elevated D-dimer. She is scheduled for a V/Q scan. Further recommendations will be forthcoming. 4. Pyuria. She is currently on Levaquin therapy. The Assessment and Plan, History of Present Illness, and Physical Exam are per Dr. Darling. We would like to thank Dr. Stahl for allowing us to participate in this patient's care. LINDSAY MILLER APRN FOR MD TONYA WHITLEY/hall /[id number] d: 07/23/16 1359 t: 07/27/16 1654, CONSULTATION REPORT
--- NOTE | ~2016-07-21 | ER ---
PATIENT'S NAME: MIKEY BURT [facility] AGE: 60 Y [address] ROOM: [id number] [place], [place] [address] LOCATION: [facility] ADMIT DATE: 07/21/2016 ER/Outpatient Report DISCHARGE DATE: FAMILY PHYSICIAN: PHYSICIAN, UNKNOWN ATTENDING PHYSICIAN: MARLY STAHL Admission date and time documented on the medical record. I saw the patient at 1910 hours. CHIEF COMPLAINT: Confusion, shortness of breath, and seizure activity. HISTORY OF PRESENT ILLNESS: The patient is a 60-year-old female, from [place] who is here in [place] with family for 2-day visit. They just got into town, got to the motel. She had some problems that she could not lift her leg and that is the last thing she remembers. Her son noted that she had tonic-clonic seizure-type activity. She was gasping for air and did have some cyanosis. 911 was dispatched. Paramedics arrived, brought the patient to the emergency room for evaluation via ambulance. The patient was confused and most likely postictal on arrival here to the emergency department. Her mentation cleared during the emergency room course. The patient initially was unable to answer any questions. When her mind cleared, she was able to fill in all the blanks. The patient does have a history of lung cancer, underwent radiation therapy, chemotherapy. She states that she is in remission. She has not had a previous seizure activity by history. She is in atrial fibrillation with rapid ventricular response and does admit that she has chronic atrial fibrillation. She is on Plavix and aspirin. She does not feel short of breath at the present time. Does feel a bit lightheaded, dizzy. Did fall to the floor, but had no injury. No recent coughs, colds, flus, fever, chills, or sweats. No headache, eyes, ears, nose, throat, neck, or spine pain. No chest pain. Does not feel short of breath at the present time. No abdominal pain, nausea, vomiting, or diarrhea. No urinary frequency or urgency, just dysuria. No joint or muscle swelling, redness, or pain. No skin eruptions or rash. No history of neuro changes, psych issues, or endocrine problems. HOME MEDICATIONS: See attached medication list. ALLERGIES: ATIVAN. SOCIAL HISTORY: Nonsmoker since 2014, nondrinker. PATIENT'S NAME: [facility] AGE: 60 Y [address] ROOM: [id number] [place], [place] [address] LOCATION: [facility] ADMIT DATE: 07/21/2016 ER/Outpatient Report DISCHARGE DATE: FAMILY PHYSICIAN: PHYSICIAN, UNKNOWN ATTENDING PHYSICIAN: MARLY STAHL SIGNIFICANT PAST MEDICAL HISTORY: Atherosclerotic ischemic heart disease with coronary artery disease, status post myocardial infarction, chronic atrial fibrillation, left lung cancer, congestive heart failure, hypertension, remote tobacco abuse, COPD. OPERATIONS: Port placement, tonsillectomy, chemotherapy, radiation therapy, cardiac catheterization with PTCA and stenting, and hysterectomy. REVIEW OF SYSTEMS: All systems reviewed by me are negative with the exception of those discussed in the history of present illness. PHYSICAL EXAMINATION: VITAL SIGNS: Temperature 99.1, tympanic; pulse 130, irregularly irregular; respirations 16; blood pressure 112/70; O2 saturation on 4 L of oxygen per nasal cannula is 96%. HEAD: Normocephalic. No abrasion, contusion, laceration, swelling of the scalp or face. EYES: Extraocular muscles intact. PERRL. EARS: Clear TMs bilaterally. NOSE: Clear. THROAT: Clear. Mucous membranes are moist. Teeth and jaw intact. NECK: No nuchal rigidity. No thyromegaly or cervical adenopathy. No tenderness. SPINE: Negative. LUNGS: Decreased breath sounds diffusely, some scattered rales and rhonchi. HEART: Irregularly irregular, tachy. Pulses are palpable. No chest wall pain to palpation. ABDOMEN: Soft, nondistended, nontender. Good bowel tones. No organomegaly or abnormal masses palpable. EXTREMITIES: Without peripheral edema, cyanosis, or deformity. NEUROVASCULAR: Intact. SKIN: Clear. No skin eruptions or rash. NEUROLOGICAL: The patient initially was postictal, confused that resolved. IMAGING: Chest x-ray shows cardiomegaly, left lower lung changes, etiology uncertain. We will review x-ray with the radiologist. EKG showed atrial fibrillation with a rapid ventricular response. CT scan of the brain showed multiple indeterminate central hyperdense lesions. This was read by Radiology, see dictated transcribed report. They did recommend a brain MRI with and without gadolinium. LABORATORY DATA: PATIENT'S NAME: [facility] AGE: 60 Y [address] ROOM: [id number] [place], [place] [address] LOCATION: [facility] ADMIT DATE: 07/21/2016 ER/Outpatient Report DISCHARGE DATE: FAMILY PHYSICIAN: PHYSICIAN, UNKNOWN ATTENDING PHYSICIAN: MARLY STAHL CMS was normal except for a low potassium of 3.4, elevated glucose 128, elevated creatinine 1.5. Normal BUN of 19, low GFR of 36. Magnesium was low at 1.7. CPK was 48. [id number]-apbf cardiac enzymes were normal. CRP was 1.05. TSH was 7.15. ProBNP was 959. Prolactin was 25.6. Medical blood alcohol was less than 0.01. Acetaminophen, salicylate, and serum levels were normal. White count was 11,200, differential of 81 segs, 9 lymphocytes, 5 monos, 3 eos, 1 baso. Hemoglobin is 9.5, hematocrit of 31.9, and platelet count is 541,000. Sed rate was 28. PTT was 27, pro-time is 12.0 with an INR of 1.14. D-dimer was elevated at 1.81. Serum ammonia was normal at 24. Procalcitonin was 0.05 and lactate was 1.6. Arterial blood gases showed a pH of 7.46, pCO2 of 42, PO2 of 71 with an O2 saturation of 95%. Urinalysis shows 5-10 whites, negative reds, 2-5 epithelial cells, many bacteria, 2+ mucus, 1+ amorphous material, 5-10 hyaline casts, negative nitrites. Culture pending. Blood cultures x2 drawn, results are pending. EMERGENCY DEPARTMENT COURSE: I did start the patient on IV normal saline, fluids. Gave her 2 liters. IMPRESSION: 1. New onset seizure activity, etiology uncertain. The patient does have indeterminate brain lesions on CT scan of the brain. This may be secondary to metastatic lesions to the brain from her previous lung cancer. Lesions may have stimulated a seizure. 2. History of left lung cancer status post chemotherapy and radiation therapy. 3. Chronic atrial fibrillation with rapid ventricular response. Blood pressure is low, so we are hydrating the patient. May be able to give Cardizem at a later date to control her rate. She is not on anticoagulation except for Plavix and daily aspirin. 4. Congestive heart failure with an elevated BNP at 959. 5. Hypertension. 6. Remote tobacco abuse. 7. Chronic obstructive pulmonary disease. 8. Atherosclerotic ischemic heart disease with coronary artery disease, status post myocardial infarction. 9. Anemia of chronic disease with a hemoglobin of 9.5 and hematocrit 31.9. 10. Elevated TSH at 7.15. 11. Chronic renal disease with creatinine of 1.5. Estimated GFR of 36. PLAN: I did discuss this patient with Dr. Coon, neurosurgeon, who reviewed the films. Dr. Coon thought the patient should have an MRI scan of the brain with TV Volume Wizard App system with and without gadolinium. This will need to be determined if she can have this contrast material with her poor kidney function. I did discuss the patient with Dr. Stahl, hospitalist, who will PATIENT'S NAME: MIKEY BURT [facility] AGE: 60 Y [address] ROOM: [place] [address] LOCATION: [facility] ADMIT DATE: 07/21/2016 ER/Outpatient Report DISCHARGE DATE: FAMILY PHYSICIAN: PHYSICIAN, UNKNOWN ATTENDING PHYSICIAN: MARLY STAHL admit the patient to the hospital. The patient did have an elevated D-dimer. It will be determined whether she will need to have a V/Q scan of the lungs, being seen that her kidney function is poor and she probably would not tolerate the CT scan contrast dye. The patient will be admitted to the hospital. Discussion ensued with the patient and her family in regard to my findings and recommendations. Accumulated critical care time 40 minutes. MD JOSE SANDERSON/modl /[id number] d: 07/22/16 0204 t: 07/22/16 1813, OUTPATIENT REPORT
--- NOTE | ~2016-07-21 | CONS ---
PATIENT'S NAME: VERONIKA BURT [facility] AGE: 60 Y [address] [place]: [id number] [address] LOCATION: [facility] ADMIT DATE: 07/21/2016 Oncology Report DISCHARGE DATE: 07/25/2016 FAMILY PHYSICIAN: Ramon Dempsey ATTENDING PHYSICIAN: Lucien Loving RADIATION THERAPY CONSULTATION DATE OF SERVICE: 07/24/2016 REFERRING PHYSICIAN: Wellington Quezada MD DIAGNOSIS: Metastatic small cell carcinoma of the lung, treated with chemotherapy and palliative radiotherapy to the chest, now with multiple brain metastases. Dear Doctor: Ms. Veronika Burt was seen today in inpatient consultation. As you recall, this is a 60-year-old white female with a known history of small cell carcinoma of the lung treated with multiple rounds of chemotherapy, treated with palliative radiotherapy to the chest. The patient finished her radiation therapy in May of 2016, was on a trip from her home in [place], and was in a hotel in [place], [place], when she had a generalized seizure. The patient subsequently was brought to [facility], was seen at [facility], underwent admission and workup. Upon workup, the patient did have an MRI of the brain, which revealed too many to count brain metastases from what was presumed to be a small cell carcinoma of the lung. The patient was started on Decadron, Keppra, and a stomach protector. When seen today, she is doing well. She does not remember the episode when she had her seizure. She indicates she does not have a headache. Denies problems with vision, hearing, or weight loss. Denies problems with her balance at this time and indicates she is feeling well and wishes to go back home to [place] where she will be seen by her physicians and receive treatment there. When seen today, she is sitting in a chair. She is alert. She is oriented. She answers questions appropriately. She has no complaints at this time. Relevant history, the patient was diagnosed in the summer of 2015 with small cell carcinoma of the lung. She did undergo 6 cycles of carboplatin and etoposide chemotherapy. Subsequently underwent palliative radiotherapy of 3000 cGy to the area of the anterior chest and has now been diagnosed with metastatic disease to the brain with a subsequent generalized seizure. PATIENT'S NAME: VERONIKA BURT [facility] AGE: 60 Y [address] ROOM: [id number] [place], [place] [address] LOCATION: [facility]ICU ADMIT DATE: 07/21/2016 Oncology Report DISCHARGE DATE: 07/25/2016 FAMILY PHYSICIAN: Ramon Dempsey ATTENDING PHYSICIAN: Lucien Loving ALLERGIES: THE PATIENT HAS A KNOWN ALLERGY TO ATIVAN THAT THE PATIENT INDICATES SHE GETS RAMBUNCTIOUS, WHETHER THIS IS A TRUE ALLERGY OR NOT IS UNCLEAR. MEDICATIONS: Current medications include: 1. Heparin. 2. Lopressor. 3. Decadron. 4. [place]. 5. Keppra. 6. MS Contin. 7. Morphine. 8. Tylenol. 9. Atrovent. 10. Xopenex. 11. Zosyn. 12. Levothroid. 13. Xylocaine. 14. Xanax. 15. Protonix. 16. Lipitor. 17. Ativan. 18. Ancef. 19. Solu-Medrol. 20. Bumex. 21. Toprol. 22. Mucomyst. 23. Lanoxin. PAST MEDICAL HISTORY: Positive for small cell carcinoma of the lung diagnosed in [place], [place] in October of 2015. The patient has undergone 6 cycles of carboplatin and etoposide chemotherapy, has been treated to what appears to be left anterior chest for where she had a mass which is the disease she presented with and received a dose of 3000 cGy in 10 fractions to the affected area. The patient does give a history of a biopsy to help make the diagnosis, has a history of an IA with stent placement in July of 2015. Previous history is positive for heavy smoking and COPD history, hypertension, hyperlipidemia, gastroesophageal reflux, atrial fibrillation, with rapid ventricular response. FAMILY HISTORY: The patient does not have a significant family history of malignancy. SOCIAL HISTORY: PATIENT'S NAME: VERONIKA BURT [facility] AGE: 60 Y [address] ROOM: [id number] [place], [place] [address] LOCATION: [facility]ICU ADMIT DATE: 07/21/2016 Oncology Report DISCHARGE DATE: 07/25/2016 FAMILY PHYSICIAN: Ramon Dempsey ATTENDING PHYSICIAN: Lucien Loving The patient has a 40+ pack-year smoking history. Stopped smoking in 2014. She was smoking 2 packs per day. She denies smoking currently. Denies a history of alcohol abuse. No previous history of drug abuse. Previous history of chemotherapy and radiation therapy including radiotherapy to the anterior chest for a dose of 3000 cGy in 10 fractions. REVIEW OF SYSTEMS: GENERAL: The patient generally had presented on this admission with generalized seizures. This was a 1st occurrence. HEAD AND NECK: No problems with her vision. No problems with her hearing noted. Oral cavity, no complaints about the oral cavity. Neck, the patient indicated that when she was initially diagnosed with her small cell lung cancer, she had a mass in the left neck region. LUNGS: The patient is with a history of small cell carcinoma. See HPI. HEART: The patient with a history of myocardial infarction as well as atrial fibrillation. GI: No complaints of stomach problems. : No history of issues. NEUROLOGIC: Patient with a new diagnosis of grand mal seizure. PHYSICAL EXAMINATION: VITAL SIGNS: Include a temperature of 98.3, a pulse of 84, blood pressure of 124/71, a weight of 85.5 kg. GENERAL: A well-developed, well-nourished, white female sitting in a chair. HEAD AND NECK: Normocephalic, atraumatic. Extraocular motions are intact. Oral cavity, no masses or mycotic lesions. Neck with no masses noted bilaterally. NEUROLOGIC: The patient is alert and oriented x3. Cranial nerves are grossly normal. Muscle strengths are symmetric, upper and lower extremities. We did not attempt to walk the patient. Mini-mental exam is grossly normal. Patient knew what year it was, who the President was, and where she was. She indicated she wished to go back home to [place] to be treated. This concludes limited physical exam of this patient. ICD 10 code. IMPRESSION: A 60-year-old white female with a known history of metastatic small cell carcinoma felt to be extensive at presentation. The patient now with multiple brain metastases as noted on MRI. PLAN: We discussed with the patient the options available. Indicated to her that we felt the best treatment option would be that of radiotherapy. We went over the NCCN guidelines with regard to various treatment regimens including 2 or 3 PATIENT'S NAME: VERONIKA BURT [facility] AGE: 60 Y [address] ROOM: [address] [address] LOCATION: [facility] ADMIT DATE: 07/21/2016 Oncology Report DISCHARGE DATE: 07/25/2016 FAMILY PHYSICIAN: Physician, Ramon ATTENDING PHYSICIAN: Lucien Loving weeks of radiotherapy to the whole brain. The patient understood the conversation. Indicated that she would wish to return home. We indicated to her that as long as she was stable, we were in favor of this. Also indicated to her that it was important that she not drive. The patient asked appropriate questions. These were answered to her satisfaction. The patient is scheduled to be discharged from our facility tomorrow and will drive home to [place] where she will be seen and evaluated by her physicians there. We indicated to the patient that we would be glad to see her as needed but we were in agreement that if she wished to go home and was stable, there would be no reason why she should not. We thank you for allowing us to consult on this most pleasant patient. Sincerely, GELACIO BAKER MD, PHD MARLYS/maria l /[id number] CC: MD Melvin Fulton MD Jason R Mallin, MD d: 07/25/16 1452 t: 08/07/16 1121, CONSULTATION REPORT
--- NOTE | ~2016-07-21 | DS ---
PATIENT'S NAME: MIKEY BURT [facility] AGE: 60 Y [address] ROOM: [id number] [place], [place] [address] LOCATION: [facility] ADMIT DATE: 07/21/2016 Discharge Summary DISCHARGE DATE: 07/25/2016 FAMILY PHYSICIAN: Ramon Dempsey ATTENDING PHYSICIAN: Lucien Loving PRIMARY DIAGNOSES: 1. Seizure disorder. 2. Brain metastasis. 3. Acute on chronic hypoxic respiratory failure. 4. Atrial fibrillation with rapid ventricular response. 5. Acute kidney injury on chronic kidney disease stage 3. 6. Acute encephalopathy. 7. Chronic conditions include history of lung cancer. 8. Other acute conditions include leukocytosis. PRINCIPAL PROCEDURE: None was indicated in the patient. LABORATORY DURING THE HOSPITAL STAY: ABG was pH of 7.46, pCO2 of 42, pO2 of 71 on 4 L of oxygen. Ammonia was 24. Cardiac enzymes x2 sets, troponin was less than 0.040; CPK was 42 on admission, highest level of CPK obtained was 42. WBC on admission was 11.2, highest level obtained was 26.4, prior to discharge was 11.5, H and H were stable throughout the hospital stay, prior to discharge were 9.9 and 36.6. Platelet was also stable throughout the hospital stay, highest level obtained of platelet was 845. Creatinine on admission was 1.5, prior to discharge was 1.4; Potassium on admission was 3.4, prior to discharge was 4.2; bicarb was stable throughout the hospital stay. Magnesium was 1.9. ESR was 28, INR was 1.18. The repeat UA was leukocytes 500, nitrite negative, wbc was 2 to 5, uric acid crystals. Urine drug screen, opiate positive, acetaminophen level less than 2.0, salicylate level less than 2.8. CRP was 1.05. TSH was 7.150. Procalcitonin on admission was 0.05, repeat was 0.65. MICROBIOLOGY DATA: Blood cultures, no growth x2 sets. Urine culture, contaminant. Repeat urine culture, no growth 2 days. RADIOLOGY DATA: Chest x-ray is reported as left hemidiaphragm elevation, what appears to be surgical clips at the left hilum, which raises the possibility of previous left partial pneumonectomy. Pleural parenchymal opacity at the left chest base, cannot exclude pneumonia or the finding could be chronic. CT of the head without contrast is reported as multiple vague areas of mildly increased focal density as described above. Advised MRI with and without contrast for further evaluation. PATIENT'S NAME: MIKEY BURT [facility] AGE: 60 Y [address] ROOM: [id number] [place], [place] [address] LOCATION: [facility] ADMIT DATE: 07/21/2016 Discharge Summary DISCHARGE DATE: 07/25/2016 FAMILY PHYSICIAN: Ramon Dempsey ATTENDING PHYSICIAN: Lucien Loving MRI of the brain, impression: Too numerous to count nodule and ring-enhancing mass lesion throughout the cerebrum and cerebellum consistent with widely disseminated metastatic disease. V/Q scan, low probability for a PE. Repeat chest x-ray, no significant label remover 2 days. Echocardiogram: EF 65% to 70% with normal wall motion, large global pericardial effusion. No obvious echo evidence of tamponade. Lower extremity duplex scan, normal venous duplex examination of the legs bilaterally with normal venous Doppler signals noted throughout, no evidence of thrombophlebitis is noted bilaterally in the deep and superficial veins of the legs. HOSPITAL COURSE: For history of present illness, please take a look at the H and P, which was done by Dr. Loving. The patient was admitted to ICU given the presentation of seizure, which was followed by acute encephalopathy and also given the hypotension, which the patient presented with. The patient was also found to be in AFib with RVR, and she was hydrated aggressively without much improvement in the blood pressures, so had neomycin put on to help keep systolic blood pressure greater than 120. Given the acute encephalopathy and seizure, the patient had a CT of the head done, which initially showed some densities. Given this, there was concern for probable mets, so the patient did get a neurosurgery consult, who recommended to go ahead and do an MRI of the brain. Following the results of the MRI of the brain, Dr. Coon felt the patient might benefit from brain biopsy in order to confirm whether this is mets or whether this is due to aseptic process going on like abscesses. The patient also did get a Neurology consult for the seizures, who agreed with continue the patient on Keppra. By the next day of the hospital stay, the patient's mentation had improved, though with periods of confusion and drowsiness. She did require 4 L of oxygen, which was weaned down to 2, though the patient does have chronic hypoxic respiratory failure but is not very compliant with the use of her oxygen at home. Given the history of seizure, there was also concern for probable aspiration and given the elevation in the white cell count, the patient was also empirically put on Zosyn from the first day of the hospital stay up until discharge. Her white cell count did trend down initially, which was followed up by the big bump and subsequently trended down up to near normal level prior to discharge. The patient remained seizure- free throughout her hospital stay. Dr. Coon did eventually reach across to the patient's oncologist at [place], who felt that brain biopsy was not indicated that we would rather go ahead and do the radiation for the patient. Dr. Coon did also consult Dr. Zaidi, the radiology oncologist here at [facility], as well as Dr. Llanes, the oncologist. Dr. Zaidi also PATIENT'S NAME: MIKEY BURT [facility] AGE: 60 Y [address] ROOM: [place] [address] LOCATION: [facility] ADMIT DATE: 07/21/2016 Discharge Summary DISCHARGE DATE: 07/25/2016 FAMILY PHYSICIAN: Ramon Dempsey ATTENDING PHYSICIAN: Lucien Loving agreed with going ahead with radiation rather than doing a brain biopsy. Based on this, the patient and family decided that they would rather return back home to [place] to continue to follow up with her regular oncologist, and so on the day of discharge, vital signs were stable. The patient was still requiring 1 to 2 L of oxygen. On room air at rest, her saturation would drop to 88, 89, and since they had a 12-hour road trip back home, we will able to get her oxygen tank to travel to take along with her home, and so the patient was discharged home. The patient also did get a Cardiology consult for her AFib with RVR and management plan per Cardiology was to she was given some digoxin, which helped to improve her rate. MEDICATIONS ON DISCHARGE: 1. Decadron 4 mg p.o. q.6 hours, new medication. 2. Keppra 500 mg b.i.d. p.o., new medication. 3. Lipitor 40 mg p.o. q.h.s. 4. Clindamycin 150 mg 4 times daily. 5. Aspirin 81 mg p.o. daily. 6. Plavix 75 mg p.o. daily. 7. Metoprolol 12.5 mg p.o. twice daily. 8. Lisinopril 2.5 mg p.o. q.h.s. 9. MS Contin 30 mg p.o. q.12 hours. 10. Protonix 40 mg p.o. daily. 11. Xanax 0.25 mg p.o. twice daily p.r.n. 12. Potassium 10 mEq p.o. q.4 hours p.r.n. 13. Jal 10/325 mg 1 tablet p.o. q.6 hours p.r.n. 14. Zofran 4 mg p.o. q.4 hours p.r.n. 15. Lasix 10 mg p.o. daily p.r.n. Discharge time on this patient is approximately 35 minutes, which includes coordination, discharge plan with Care Management and the respiratory therapy team. MD GEOFFREY ROSEN/hall /[id number] d: 07/26/16 0107 t: 07/30/16 1303, DISCHARGE SUMMARY
[2016-07-21 19:56] LABS: BASOPHIL # 0.1 K/uL (0.0-0.2); BASOPHIL % 0.6 %; EOSINOPHIL # 0.3 K/uL (0.0-0.5); EOSINOPHIL % 2.8 %; HEMATOCRIT 31.9 % (33.0-46.0); HEMOGLOBIN 9.5 g/dL (10.0-15.0); IMMATURE GRANULOCYTE # 0.2 K/uL (0.0-0.3); IMMATURE GRANULOCYTE % 2.1 %; LYMPHOCYTE % 8.9 %; MCH 26.5 pg (27.0-34.0); MCHC 29.8 gm/dL (32.0-36.5); MCV 88.9 fl (83.0-98.0); MONOCYTE # 0.5 K/uL (0.0-1.0); MONOCYTE % 4.8 %; MPV 11.5 fl (9.4-12.4); NEUTROPHIL % 80.8 %; NRBC % 0 /100WBC (0-0.00); PLATELET COUNT 541 K/uL (150-450); RBC 3.59 M/uL (3.50-5.50); RDW-CV 17.7 % (11.9-14.6); WBC 11.2 K/uL (4.0-11.0)
[2016-07-21 20:06] LABS: BICARBONATE 29.9 mmol/L (18.0-23.0); LACTATE 1.6 mEq/L (0.50-1.60); PCO2 42 mmHg (35-45); PO2 71 mmHg (80-90)
[2016-07-21 20:07] LABS: INR - (THERAPEUTIC) 1.14 (0.92-1.07); PTT 27 SECONDS (25-32)
[2016-07-21 20:18] LABS: ALBUMIN 3.3 gm/dL (3.5-5.0); ALK PHOS 48 IU/L (33-138); ALT 10 IU/L (12-78); ANION GAP 13.4 (10.0-19.0); AST 25 IU/L (10-40); BLOOD UREA NITROGEN 19 mg/dL (6-24); CALCIUM 8.9 mg/dL (8.5-10.5); CHLORIDE 101 mMol/L (96-110); CO2 28 mMol/L (22-32); CPK 48 IU/L (21-215); CREATININE 1.5 mg/dL (0.5-1.1); ESTIMATED GFR (MDRD EQUATION) 36; MAGNESIUM 1.7 mg/dL (1.8-2.6); POTASSIUM 3.4 mMol/L (3.7-5.1); SODIUM 139 mMol/L (135-145); TOTAL BILIRUBIN 0.8 mg/dL (0.0-1.5); TOTAL PROTEIN 6.9 g/dL (6.0-8.4)
[2016-07-21 21:31] LABS: BILIRUBIN URINE NEGATIVE (NEGATIVE); BLOOD URINE NEGATIVE /UL (NEGATIVE); COLOR URINE YELLOW (YELLOW); GLUCOSE URINE NEGATIVE (NEGATIVE); KETONE URINE NEGATIVE (NEGATIVE); LEUKOCYTES URINE 500 /UL (NEGATIVE); NITRITE URINE NEGATIVE (NEGATIVE); PROTEIN URINE 30 mg/dL (NEGATIVE); SPEC GRAVITY URINE 1.025 (1.003-1.035); UROBILINOGEN URINE 1 mg/dL (NORMAL)
[2016-07-21 21:33] LABS: TURBIDITY URINE CLEAR (CLEAR)
[2016-07-21 21:39] LABS: BACTERIA URINE MANY (NEGATIVE); RBC URINE NEGATIVE #/HPF (NEGATIVE)
[2016-07-21 21:40] LABS: AMORPHOUS URINE 1+ (NEGATIVE); MUCUS URINE 2+ (NEGATIVE)
[2016-07-21 22:08] LABS: AMPHETAMINE NEGATIVE (NEGATIVE); BARBITURATE NEGATIVE (NEGATIVE); COCAINE NEGATIVE (NEGATIVE)
[2016-07-21 22:09] LABS: OPIATES POSITIVE (NEGATIVE)
[2016-07-21] MEDS ORDERED: ASPIRIN (CHILDR81 MG PO (22:49)
[2016-07-21] MEDS ORDERED: ZESTRIL2.5 MG PO (22:49)
[2016-07-21] MEDS ORDERED: K-TAB 10MEQ10 MEQ PO (22:49)
[2016-07-21] MEDS ORDERED: CLEOCIN150 MG PO (22:50)
[2016-07-21] MEDS ORDERED: NORCO 10-325 T1 EACH PO (22:51)
[2016-07-21] MEDS ORDERED: PROTONIX40 MG PO (22:51)
[2016-07-21] MEDS ORDERED: MS CONTIN30 MG PO (22:52)
[2016-07-21] MEDS ORDERED: XANAX0.25 MG PO (22:52)
[2016-07-21] MEDS ORDERED: ZOFRAN4 MG PO (22:52)
[2016-07-21] MEDS ORDERED: LASIX20 MG PO (22:53)
[2016-07-21] MEDS ORDERED: LOPRESSOR25 MG PO (22:53)
[2016-07-21] MEDS ORDERED: LIPITOR40 MG PO (22:53)
[2016-07-21] MEDS ORDERED: PLAVIX75 MG PO (22:54)
--- NOTE | 2016-07-22 01:24 | NUR ---
Patient arrived on floor from ED at 2210 by wheelchair no family accompainied. Patient had come up to [place] from [place] to visit and then head on up to visit the [facility]. Shortly after arriving in [place] her Son found her in the hotel room on her back gasping for air and not responding. When EMS arrived pt was sitting at edge of the bed responsive but very confused. Patient has a history of cancer to the lungs and has recently finished radiation. CT of head done in ER showed possible lessions. MRI with and without contrast scheduled for AM. Pt was on 4L of O2 on arrival to floor. 2L of fluids bolused and 3L going on arrival to floor due to BP and HR. Port to R) chest accessed in ER.
--- NOTE | 2016-07-22 01:30 | NUR ---
Significant Event: Patient A&OX3. Pupils equal and reactive. L) leg weakness and L) arm weakness which is patients normal. L) arm has chronic numbness and pain. On tele running rapid afib. Patient runs chronic a-fib. Blood pressures running hypertensive total of 4L bolus given and SBP continues to not stabalize. MD called and ordered albumin which was given in ICU and to transfer patient to ICU. Patient on 2L of O2 sats in mid 90s lungs clear. Cardiac diet. Patient has very dry skin. Port to R) chest accessed. PO potassium and IV magnesium given. IV placed in R) wrist SL. Follow up: Pt transfered to ICU at 0110.
--- NOTE | 2016-07-22 05:09 | NUR ---
Significant Event: Patient AOx3, baseline weakness noted in LUE and LLE. Afib, rates 80-120. BP stable on godfrey currently at 0.9mcg/kg/min. Currently on 1L/NC s ats 93%. Bowel sounds active, no bm. No void while on ICU. Skin abnormalities noted on skin sheet. Follow up: Neurology, cardiology, neuro surgery, possibly anesthesia consults today with possible CT and MRI pending lab results.
[2016-07-22 07:15] LABS: HEMATOCRIT 34.8 % (33.0-46.0); HEMOGLOBIN 10.4 g/dL (10.0-15.0); MCH 26.6 pg (27.0-34.0); MCHC 29.9 gm/dL (32.0-36.5); MPV 11.2 fl (9.4-12.4); RBC 3.91 M/uL (3.50-5.50); RDW-CV 18.1 % (11.9-14.6); WBC 15.7 K/uL (4.0-11.0)
[2016-07-22 07:25] LABS: INR - (THERAPEUTIC) 1.18 (0.92-1.07); PROTIME 12.4 SECONDS (9.8-11.4)
[2016-07-22 07:28] LABS: CALCIUM 8.7 mg/dL (8.5-10.5); CREATININE 1.2 mg/dL (0.5-1.1)
[2016-07-22 07:29] LABS: ANION GAP 13.7 (10.0-19.0); POTASSIUM 4.7 mMol/L (3.7-5.1)
[2016-07-22 07:45] LABS: CPK 42 IU/L (21-215)
--- NOTE | 2016-07-22 17:30 | NUR ---
PT A/OX3. SOMEWHAT DROWSY THIS AFTERNOON BUT MORE AROUSABLE THIS EARLY EVENING. PRECEDEX GIVEN FOR V/Q SCAND AND MRI/MRA WITH GREAT RESPONSE AND TOLERATED TESTS WELL (PER MD REPORT). V/Q NEGATIVE FOR PE, MRI/MRA SHOWING NUMEROUS AREAS OF MASS-LIKE EFFECT, WITH PLAN FOR FRONTAL BX ON Sunday07/24/16 PER . CONTINUES ON KEPPRA, NO SEIZURE ACTIVITY THIS SHIFT. REMAINS AFEBRILE, HR 100-140'S (WITH ACTIVITY) REMAINS IN AFIB, CHECO OFF AT 1630 WITH OK TO TITRATE TO KEEP MAP >65. SBP 80-140'S, MAP >65, SLOWLY STARTING TO TREND DOWN THIS EVENING. 1/2 NS STARTED AT 50MLS/HR FOR MAINTENANCE IVF, PULSES 1+ T/O, WITH 1+ DEPENDENT EDEMA. 3LNC WITH SATS LOW 90'S, L) LUNG DIM T/O, R) DIM TO BASE AND BILAT CLEAR TO UPPER AND MIDDLE LOBE. UP TO BEDSIDE COMMODE X2 WITH MARGINAL UOP, MD AWARE. DE-ESCALATED STEROID DOSE TODAY, GLUCOSE ON LABS APPEAR STABLE. LEVAQUIN DC'D AND CHANGED TO ZOSYN AT THIS POINT. NO BM, NO FLATUS, ABD SOFT AND N/T, DENIES NAUSEA, AND POOR ORAL INTAKE. PIV X1 FOR ABX, R) CHEST PORT WITH IVF AND CHECO (CURRENTLY OFF).
--- NOTE | 2016-07-23 04:44 | NUR ---
Significant Event: Patient drowsy, oriented to place, person and year. Seizure activity observed this shift in LUE, treated with 2mg ativan per and additional 1000mg keppra given. Patient occasionally anxious since. Afib, rapid rates treated x1 this shift with 250mcg digoxin per Dr. Darling. Dariel restarted this shift and currently infusing at 0.6mcg/kg/min to keep SBP>120. Continues on 2L/NC. Bowel sounds active, BM x3 this shift. Decreased appetite, refused dinner. Void x3 for 450ml UOP. Follow up: Continue. Wean Dariel.
[2016-07-23 04:53] LABS: CALCIUM 8.8 mg/dL (8.5-10.5); CREATININE 1.2 mg/dL (0.5-1.1); MAGNESIUM 1.9 mg/dL (1.8-2.6)
[2016-07-23 04:59] LABS: HEMOGLOBIN 9.9 g/dL (10.0-15.0); MCH 26.5 pg (27.0-34.0); MCV 88.2 fl (83.0-98.0); MPV 11.1 fl (9.4-12.4); PLATELET COUNT 845 K/uL (150-450); RBC 3.74 M/uL (3.50-5.50); RDW-CV 18.1 % (11.9-14.6)
[2016-07-23 05:01] LABS: WBC 26.4 K/uL (4.0-11.0)
[2016-07-23 05:58] LABS: ABSOLUTE NEUTROPHIL CT (ANC) 25.3 K/uL (1.8-7.8); BANDED NEUTROPHIL # 0.8 K/uL (0.0-0.1); BANDED NEUTROPHILS % 3 %; LYMPHOCYTE # 0.5 K/uL (0.8-4.0); LYMPHOCYTE % 2 %; SEGMENTED NEUTROPHIL # 24.6 K/uL (1.8-7.8); SEGMENTED NEUTROPHIL % 93 %
[2016-07-23 15:02] LABS: BILIRUBIN URINE NEGATIVE (NEGATIVE); BLOOD URINE 10 /UL (NEGATIVE); COLOR URINE YELLOW (YELLOW); GLUCOSE URINE NEGATIVE (NEGATIVE); KETONE URINE NEGATIVE (NEGATIVE); LEUKOCYTES URINE 500 /UL (NEGATIVE); NITRITE URINE NEGATIVE (NEGATIVE); PROTEIN URINE NEGATIVE (NEGATIVE); SPEC GRAVITY URINE 1.015 (1.003-1.035); TURBIDITY URINE 1+ (CLEAR); UROBILINOGEN URINE NORMAL (NORMAL)
[2016-07-23 15:16] LABS: BACTERIA URINE FEW (NEGATIVE); CRYSTALS URINE URIC ACID (NEGATIVE)
--- NOTE | 2016-07-23 16:36 | NUR ---
Significant Event: PT A&O x3, forgetful. VSS, O2 at 2L per nasal cannula. Dariel gtt dc'd at 1600. Pain issues, tylenol and ms contin ordered, pain some better. R)chest port patent. PT ambulates with SBA. NPO after midnight for brain biopsy. PT refused meals, drinking little water. Follow up:
--- NOTE | 2016-07-24 04:38 | NUR ---
Significant Event: Patient AOx3. Afib/flutter 80-110s. BP stable with godfrey off at 1852. Continues on 2L/NC. Bowel sounds active, no bm this shift. 1/2 NS continues at 50ml/hr. Follow up: Continue/transfer?
[2016-07-24 05:31] LABS: BASOPHIL % 0.1 %; HEMATOCRIT 30.4 % (33.0-46.0); HEMOGLOBIN 9.2 g/dL (10.0-15.0); IMMATURE GRANULOCYTE # 0.3 K/uL (0.0-0.3); IMMATURE GRANULOCYTE % 2.4 %; LYMPHOCYTE # 0.8 K/uL (0.8-4.0); LYMPHOCYTE % 5.3 %; MCH 26.9 pg (27.0-34.0); MCHC 30.3 gm/dL (32.0-36.5); MCV 88.9 fl (83.0-98.0); MONOCYTE # 0.5 K/uL (0.0-1.0); MONOCYTE % 3.7 %; MPV 10.9 fl (9.4-12.4); NEUTROPHIL # (ANC) 12.6 K/uL (1.8-7.8); NEUTROPHIL % 88.5 %; NRBC % 0.1 /100WBC (0-0.00); PLATELET COUNT 557 K/uL (150-450); RBC 3.42 M/uL (3.50-5.50); RDW-CV 18.1 % (11.9-14.6); WBC 14.3 K/uL (4.0-11.0)
[2016-07-24 05:32] LABS: ANION GAP 12.4 (10.0-19.0); CALCIUM 8.9 mg/dL (8.5-10.5); CREATININE 1.5 mg/dL (0.5-1.1); MAGNESIUM 2.1 mg/dL (1.8-2.6); PHOSPHORUS 3.7 mg/dL (2.5-4.9); POTASSIUM 4.4 mMol/L (3.7-5.1)
--- NOTE | 2016-07-24 12:53 | NUR ---
CONSULT D/T PRESSURE ULCER NOTED. PT RECEIVING ENSURE BID. CURRENT INTERVENTION APPROPRIATE. WILL CONT TO FOLLOW.
--- NOTE | 2016-07-24 16:56 | NUR ---
Significant Event: PT A&O x3. VSS, on room air. PT did not have a biopsy today. R)chest port patent. Ambulates with walker, SBA. Pain well controlled with scheduled ms contin. Open sores to L)inner buttock. Started on PO decadron and keppra. Follow up:Possible DC tomorrow.
--- NOTE | 2016-07-25 03:31 | NUR ---
Significant Event: A/Ox3. VSS. 2L NC. Lungs clear and dim. No BM. Poor appetite. Up to BR SBA x2 to void. 950 ml urine out. 1/2 NS running at 50 ml/hr. Denies pain. Follow up: Discharge home today
[2016-07-25 06:01] LABS: ANION GAP 12.2 (10.0-19.0); CREATININE 1.4 mg/dL (0.5-1.1); MAGNESIUM 1.9 mg/dL (1.8-2.6); POTASSIUM 4.2 mMol/L (3.7-5.1)
[2016-07-25 06:36] LABS: BASOPHIL % 0.1 %; HEMATOCRIT 33.6 % (33.0-46.0); HEMOGLOBIN 9.9 g/dL (10.0-15.0); IMMATURE GRANULOCYTE # 0.4 K/uL (0.0-0.3); IMMATURE GRANULOCYTE % 3.6 %; LYMPHOCYTE # 0.5 K/uL (0.8-4.0); LYMPHOCYTE % 4.6 %; MCH 26.2 pg (27.0-34.0); MCHC 29.5 gm/dL (32.0-36.5); MCV 88.9 fl (83.0-98.0); MONOCYTE # 0.3 K/uL (0.0-1.0); MONOCYTE % 2.5 %; MPV 10.8 fl (9.4-12.4); NEUTROPHIL # (ANC) 10.3 K/uL (1.8-7.8); NEUTROPHIL % 89.2 %; NRBC % 0 /100WBC (0-0.00); PLATELET COUNT 599 K/uL (150-450); RBC 3.78 M/uL (3.50-5.50); RDW-CV 18.2 % (11.9-14.6); WBC 11.5 K/uL (4.0-11.0)
[2016-07-25] MEDS ORDERED: DECADRON4 MG PO (10:51)
[2016-07-25] MEDS ORDERED: KEPPRA500 MG PO (10:54)
--- NOTE | 2016-07-25 12:02 | NUR ---
Introduced self and role of care management to pt and her sister and son. They were traveling here from [place] when all this happened. The plan is today to leave and Bruce with [facility] working on oxygen. She states they are aware to stop several times while driving and will stay overnite. She has a doctors appointment when she gets back. She does have her meds but not the new ones. I did call [facility] in [place] because she gets hers filled at [facility] in [place] and they do not think it will work with insurance. I then spoke with Linda and will fill 3 days worth of meds for the trip for [facility] and the [facility]. At this time denies any other needs.
--- NOTE | 2016-07-25 12:32 | NUR ---
SIGNIFICANT EVENTS AND DISCHARGE SUMMARY: PATIENT ALERT, ORIENTED X3. FOLLOWS ALL COMMANDS. EQUAL STRENGTH THROUGHOUT. PATIENT AMBULATORY. DENIES ANY NEW NUMBNESS, TINGLING, OR PAIN. SCHEDULED MORPHINE GIVEN PER MD ORDERS, RELIEF NOTED. PATIENT MOVES ALL 4 EXTREMITIES SPONTANEOUSLY. PATIENT HAS BEEN IN AFIB, HR 70-80S. BP STABLE, SBP 110-120S, MAP>65. PULSES PALPABLE THROUGHOUT. AFBEBRILE. PATIENT HAS BEEN ON 2L NASSAL CANNULA THROUGHOUT THE DAY, [employer]) [facility] O2 TANK TO HOSPITAL FOR PATIENT PRIOR TO DISCHARGE AND NASAL CANNULA. SATS LOW TO MID 90S THROUGHOUT THE DAY. BOWEL SOUNDS PRESENT, NO BM TODAY. ADEQUATE INTAKE. ADEQUATE URINE OUTPUT. PATIENT REFUSED BATH. REPOSITIONED EVERY 2 HOURS AND AT TIMES MORE OFTEN. NO NEW SKIN ISSUES NOTED. PORT DE-ACCESSED PRIOR TO D/C. PATIENT LEFT ICU AT 1200 TO HOME. ALL BELONGIGNS SENT WITH PATIENT. PATIENT PROVIDED WITH ALL DISCHARGED INSTRUCTIONS. D/C INFORMATION REVIED WITH PATIENT INCLUDING NEW AND OLD MEDS. PATIENT VERBALIZES AND DEMONSTRATES PROPER UNDERSTANDING. ALERT AND ORIENTED UPON DISCHARGE. STABLE. SENT WITH [facility] PER WHEEL CHAIR AND O2 TANK. FAMILY WITH PATIENT INCLUDING SISTER AND SON DEMONSTRATES
== END 2016-07-25 12:00 | disposition disaster alternative care site (69) | DRG 54 ==
LOC: GMED 19:11 → GICU 21:38 → GNTU 21:38 → GICU 07-22 01:20
PROVIDERS: Emergency Medicine; Hospitalist; Internal Medicine Interventional Cardiology; ADMIT Internal Medicine
DX: C79.31 Secondary malignant neoplasm of brain (principal); J96.21 Acute and chronic respiratory failure with hypoxia; J69.0 Pneumonitis due to inhalation of food and vomit; I13.0 Hypertensive heart and chronic kidney disease with heart failure and stage 1 through stage 4 chronic kidney disease, or unspecified chronic kidney disease; G93.40 Encephalopathy, unspecified; I95.9 Hypotension, unspecified; I50.9 Heart failure, unspecified; N17.9 Acute kidney failure, unspecified; J44.1 Chronic obstructive pulmonary disease with (acute) exacerbation; N39.0 Urinary tract infection, site not specified; N18.3 Chronic kidney disease, stage 3 (moderate); G40.909 Epilepsy, unspecified, not intractable, without status epilepticus; I48.91 Unspecified atrial fibrillation; E78.5 Hyperlipidemia, unspecified; K21.9 Gastro-esophageal reflux disease without esophagitis; E03.9 Hypothyroidism, unspecified; I25.10 Atherosclerotic heart disease of native coronary artery without angina pectoris; I25.2 Old myocardial infarction; Z85.118 Personal history of other malignant neoplasm of bronchus and lung; Z91.19 Patient's noncompliance with other medical treatment and regimen; Z79.82 Long term (current) use of aspirin; Z87.891 Personal history of nicotine dependence; Z79.01 Long term (current) use of anticoagulants
CPT/HCPCS: A9539; A9540; G0480; J1160; J1644; J1650; J1953; J1956; J2001; J2060; J2370; J2543; J2920; J2930; J3475; J7030; J7040; J7050; P9047

== ENCOUNTER → 2016-07-21 | Outpatient (CLI) | payer MEDICAID ==
[~2016-07-21] MED LIST: ASPIRIN (CHILDR81 MG PO; CLEOCIN150 MG PO; DECADRON4 MG PO; K-TAB 10MEQ10 MEQ PO; KEPPRA500 MG PO; LASIX20 MG PO; LIPITOR40 MG PO; LOPRESSOR25 MG PO; MS CONTIN30 MG PO; NORCO 10-325 T1 EACH PO; PLAVIX75 MG PO; PROTONIX40 MG PO; XANAX0.25 MG PO; ZESTRIL2.5 MG PO; ZOFRAN4 MG PO
== END | disposition disaster alternative care site (69) ==
LOC: GAMB 18:42
DX: R41.82 Altered mental status, unspecified (principal); I25.2 Old myocardial infarction; I48.2 Chronic atrial fibrillation; R06.9 Unspecified abnormalities of breathing; R00.0 Tachycardia, unspecified; Z85.118 Personal history of other malignant neoplasm of bronchus and lung; Z79.82 Long term (current) use of aspirin; Z79.02 Long term (current) use of antithrombotics/antiplatelets; Z79.899 Other long term (current) drug therapy; Z88.8 Allergy status to other drugs, medicaments and biological substances
CPT/HCPCS: A0425; A0427